=== PATIENT | male | born 1980 | race Caucasian/White ===

== ENCOUNTER 2018-03-24 07:47 | Emergency (ER) | payer OTHER ==
[~2018-03-24] VITALS: Ht 190.5 cm; Wt 85.5 kg
[2018-03-24] MEDS ORDERED: LIB5 PO (07:57)
[2018-03-24] MEDS ORDERED: LORazepam 2 MG/ML VIAL IVP ONE (08:30)
[2018-03-24] MEDS ORDERED: SODIUM CHLORIDE 0.9% 1,000 ML IV ONE (08:30)
[2018-03-24] MEDS ORDERED: DIVALPROEX SODIUM 500 MG ER TABLET PO ONE (08:30)
[2018-03-24 09:19] VITALS: BP 145/99
== END 2018-03-24 10:12 | disposition home or self-care (01) ==
LOC: EMS 07:49
DX: G40.909 Epilepsy, unspecified, not intractable, without status epilepticus (principal); F17.210 Nicotine dependence, cigarettes, uncomplicated; Z88.0 Allergy status to penicillin; Z88.2 Allergy status to sulfonamides; Z88.6 Allergy status to analgesic agent; Z88.1 Allergy status to other antibiotic agents; Z88.5 Allergy status to narcotic agent
CPT/HCPCS: 96374; 99283; J2060; J7030